=== PATIENT | female | born 1970 | race Caucasian/White ===

== ENCOUNTER 2016-05-13 09:05 | Emergency (ER) | payer SELFPAY ==
--- NOTE | 2016-05-13 11:40 | ER Document Report ---
ED Psych Disorder / Suicide - General Mode of Arrival: Ambulatory Information source: Patient TRAVEL OUTSIDE OF THE [place] IN LAST 30 DAYS: No - HPI Patient complains to provider of: Other - see narrative Onset: Other Onset was: Cannot confirm Severity: None Normal mood: Yes Similar symptoms previously: Yes - General Chief Complaint: Anxiety Stated Complaint: NAUSEA Notes: Patient is a 45 year old female that presents to the emergency department today with complaints of depression, anxiety, and stress problems. Patient states had been on lexapro, depakote, and xanax for "years" however she recently moved here from [place] and she has not had her medications for quite some time. Patient states that she has an appointment with a mental health doctor here tomorrow. Patient states she has her diabetes medications at home and has plenty of refills on those. Patient denies any suicidal or homicidal ideation. (JOSE ROBERTS) - Related Data Allergies/Adverse Reactions: coconut Allergy (Verified 05/13/16 09:23) Past Medical History - General Information source: Patient - Social History Smoking Status: Never Smoker Cigarette use (# per day): No Chew tobacco use (# tins/day): No Frequency of alcohol use: None Drug Abuse: None Lives with: Family Family History: Reviewed & Not Pertinent, DM Patient has suicidal ideation: No Patient has homicidal ideation: No Endocrine Medical History: Reports: Hx Diabetes Mellitus Type 2 Psychiatric Medical History: Reports: Hx Anxiety, Hx Bipolar Disorder, Hx Depression Past Surgical History: Reports: Hx Appendectomy, Hx Hysterectomy, Hx Orthopedic Surgery - knee, carpal tunnel Review of Systems - Review of Systems Constitutional: No symptoms reported EENT: No symptoms reported Cardiovascular: No symptoms reported Respiratory: No symptoms reported Gastrointestinal: No symptoms reported Genitourinary: No symptoms reported Female Genitourinary: No symptoms reported Musculoskeletal: No symptoms reported Skin: No symptoms reported Hematologic/Lymphatic: No symptoms reported Neurological/Psychological: See HPI, Other - depression, anxiety, stress. denies: Homicidal ideation, Suicidal ideation -: Yes All other systems reviewed and negative Physical Exam - Vital signs Interpretation: Normal - General General appearance: Appears well, Alert In distress: None - HEENT Head: Normocephalic, Atraumatic Eyes: Normal Conjunctiva: Normal Extraocular movements intact: Yes - Respiratory Respiratory status: No respiratory distress Chest status: Nontender Breath sounds: Normal - Cardiovascular Rhythm: Regular Heart sounds: Normal auscultation Murmur: No - Abdominal Inspection: Normal Distension: No distension - Extremities General upper extremity: Normal inspection, Normal ROM. No: Edema General lower extremity: Normal inspection, Normal ROM. No: Edema - Neurological Neuro grossly intact: Yes Cognition: Normal Orientation: AAOx4 Speech: Normal - Psychological Associated symptoms: Anxious, Other - Denies: homicidal or suicidal ideation - Skin Skin Temperature: Warm Skin Moisture: Dry Skin Color: Normal Course - Re-evaluation Re-evalutation: 05/13/16 11:44 Patient with no suicidal or homicidal ideation. Is requesting to restart Lexapro and Depakote. Has a follow-up appointment with a counselor tomorrow but cannot be prescribed medications for anxiety or depression at this time. Patient has been advised of risk of suicidality with Lexapro and is to return immediately if she experiences any such symptoms. Understands agrees with plan. Will be given Vistaril and not Xanax for panic attacks. Stable for discharge. (JOHN BARAJAS) - Vital Signs Vital signs: Temp Pulse Resp BP Pulse Ox 98.0 F 75 16 127/61 H 96 05/13/16 11:56 05/13/16 11:56 05/13/16 09:17 05/13/16 11:56 05/13/16 11:56 (JOSE ROBERTS) (JOHN BARAJAS) Discharge - Discharge Clinical Impression: Anxiety Depression Qualifiers: Depression Type: unspecified Qualified Code(s): F32.9 - Major depressive disorder, single episode, unspecified Condition: Stable Disposition: HOME, SELF-CARE Instructions: Anxiety (OM) Additional Instructions: Please keep your appointment with your counselor tomorrow. If you experience any suicidal or homicidal ideation, please return immediately to the emergency department. Prescriptions: Divalproex Sodium [Depakote] 500 mg PO BID #30 tablet. Escitalopram Oxalate [Lexapro] 10 mg PO DAILY #30 tablet Hydroxyzine Pamoate [Vistaril 25 mg Capsule] 25 mg PO BIDP PRN #20 capsule PRN Reason: Forms: Return to Work Referrals: [facility] [Primary Care Provider] - Follow up as needed Scribe Attestation: 05/13/16 18:47 I personally performed the services described in the documentation, reviewed and edited the documentation which was dictated to the scribe in my presence, and it accurately records my words and actions. (JOHN BARAJAS) Scribe Documentation - Scribe Written by Scribe:: Claudio Cheung, 05/13/16 1151 acting as scribe for :: Cyndy
[2016-05-13 11:59] VITALS: BP 127/61
== END 2016-05-13 11:59 | disposition home or self-care (01) ==
LOC: ER 09:05
DX: F41.9 Anxiety disorder, unspecified (principal); F32.9 Major depressive disorder, single episode, unspecified; F43.9 Reaction to severe stress, unspecified; E11.9 Type 2 diabetes mellitus without complications; Z79.899 Other long term (current) drug therapy; Z91.013 Allergy to seafood
CPT/HCPCS: 99283

== ENCOUNTER → 2016-05-24 | Outpatient (CLI) | payer OTHER ==
[2016-05-24 09:35] LABS: ALANINE AMINOTRANSFERASE 83 U/L (9-52); ALBUMIN 4.2 g/dL (3.5-5.0); ALKALINE PHOSPHATASE 78 U/L (38-126); ASPARTATE AMINO TRANSFERASE 46 U/L (14-36); BILIRUBIN,TOTAL 0.4 mg/dL (0.2-1.3); CHOLESTEROL 220.17 mg/dL (0-200); Direct HDL 49 mg/dL (>40); TRIGLYCERIDES 127 mg/dL (<150)
[2016-05-24 09:46] LABS: DIRECT LDL 158 mg/dL (<100)
[2016-05-25 07:41] LABS: HEPATITIS C VIRUS AB <0.1 s/co ratio (0.0-0.9)
[2016-05-25 10:39] LABS: HEPATITIS A AB TOTAL Positive (Negative)
== END ==
LOC: CCC 08:07
DX: R94.5 Abnormal results of liver function studies (principal); B15.9 Hepatitis A without hepatic coma; E11.9 Type 2 diabetes mellitus without complications
CPT/HCPCS: 36415; 72050; 80061; 80076; 83036; 86317; 86708; 86709; 86803; 86804; 87340

== ENCOUNTER → 2016-05-29 | Outpatient (CLI) | payer OTHER ==
[2016-06-01 10:53] LABS: HEPATITIS A AB TOTAL Positive (Negative)
== END ==
LOC: CCC 09:27
DX: R94.5 Abnormal results of liver function studies (principal); B15.9 Hepatitis A without hepatic coma
CPT/HCPCS: 36415; 86708; 86709

== ENCOUNTER → 2016-07-21 | Outpatient (CLI) | payer OTHER | LOC: WI 14:39 | DX: Z12.31 Encounter for screening mammogram for malignant neoplasm of breast (principal) | CPT/HCPCS: 77067; G0202 ==

== ENCOUNTER → 2016-10-08 | Outpatient (CLI) | payer OTHER ==
[2016-10-09 09:56] LABS: ALANINE AMINOTRANSFERASE 96 U/L (9-52); ALKALINE PHOSPHATASE 84 U/L (38-126); ANION GAP 11 (5-19); ASPARTATE AMINO TRANSFERASE 62 U/L (14-36); BILIRUBIN,DIRECT 0.3 mg/dL (0.0-0.4); BILIRUBIN,TOTAL 0.5 mg/dL (0.2-1.3); BLOOD UREA NITROGEN 12 mg/dL (7-20); CALCIUM 8.8 mg/dL (8.4-10.2); CARBON DIOXIDE 25 mmol/L (22-30); CHLORIDE 108 mmol/L (98-107); CHOLESTEROL 145.27 mg/dL (0-200); CREATININE RESULT 0.73 mg/dL (0.52-1.25); Direct HDL 47 mg/dL (>40); GLUCOSE 114 mg/dL (75-110); POTASSIUM 4.5 mmol/L (3.6-5.0); SODIUM 143.7 mmol/L (137-145); TOTAL PROTEIN 6.4 g/dL (6.3-8.2); TRIGLYCERIDES 82 mg/dL (<150)
[2016-10-09 10:06] LABS: DIRECT LDL 97 mg/dL (<100)
== END ==
LOC: OD 17:39
DX: E11.8 Type 2 diabetes mellitus with unspecified complications (principal)
CPT/HCPCS: 36415; 80053; 80061

== ENCOUNTER → 2016-11-15 | Outpatient (CLI) | payer OTHER | LOC: CCC 16:02 | DX: E11.65 Type 2 diabetes mellitus with hyperglycemia (principal) | CPT/HCPCS: 36415; 83036; 84443 ==

== ENCOUNTER → 2017-08-23 | Outpatient (CLI) | payer OTHER ==
[2017-08-23 08:51] LABS: ABSOLUTE EOSINOPHILS # (AUTO) 0.4 10^3/uL (0.0-0.6); ABSOLUTE LYMPHOCYTES (AUTO) 2.4 10^3/uL (0.5-4.7); ABSOLUTE MONOCYTES (AUTO) 0.6 10^3/uL (0.1-1.4); ABSOLUTE NEUT (AUTO) 4.7 10^3/uL (1.7-8.2); BASOPHILS % (AUTO) 0.2 % (0-2); EOSINOPHILS % (AUTO) 4.5 % (0-6); HEMATOCRIT 38.5 % (36.0-47.0); HEMOGLOBIN 13.1 g/dL (12.0-15.5); LYMPHOCYTES % (AUTO) 29.8 % (13-45); MEAN CORPUSCULAR HEMOGLOBIN 30.7 pg (27.0-33.4); MEAN CORPUSCULAR VOLUME 90 fl (80-97); MONOCYTES % (AUTO) 6.9 % (3-13); PLATELET COUNT 223 10^3/uL (150-450); RED BLOOD COUNT 4.26 10^6/uL (3.72-5.28); RED CELL DISTRIBUTION WIDTH 13.3 % (11.5-14.0); SEGMENTED NEUTROPHILS % (AUTO) 58.6 % (42-78); TOTAL CELLS COUNTED % (AUTO) 100 %; WHITE BLOOD COUNT 8.1 10^3/uL (4.0-10.5)
[2017-08-23 09:06] LABS: CHOLESTEROL 139.19 mg/dL (0-200); TRIGLYCERIDES 171 mg/dL (<150)
[2017-08-23 09:17] LABS: DIRECT LDL 66 mg/dL (<100)
[2017-08-23 10:00] LABS: VLDL CHOLESTEROL 34.2 mg/dL (10-31)
[2017-08-23 10:21] LABS: UR PRO/CREAT RATIO RESULT 0.1 mg/mg (0.0-0.2); URINE CREATININE 107.8 mg/dL (15-278); URINE PROTEIN 6.9 mg/dL (<12)
== END ==
LOC: OD 07:32
DX: E11.40 Type 2 diabetes mellitus with diabetic neuropathy, unspecified (principal)
CPT/HCPCS: 36415; 80061; 82570; 82607; 83036; 84156; 84443; 85025